=== PATIENT | female | born 1945 | race Caucasian/White ===

== ENCOUNTER 2019-05-01 08:59 | Outpatient (CLI) | payer MEDICARE, OTHER ==
--- NOTE | 2019-05-15 09:08 | MMO ---
Bilateral MAMMO Bilat Screen DDI. CLINICAL HISTORY: Patient is 74 years old and is seen for screening. The patient has no family history of breast cancer. The patient has no personal history of cancer. VIEWS: The views performed were: bilateral craniocaudal and bilateral mediolateral oblique. FILMS COMPARED: The present examination has been compared to prior imaging studies performed at [facility] on 03/19/2013, 04/10/2013 and 04/30/2014. This study has been interpreted with the assistance of computer-aided detection. MAMMOGRAM FINDINGS: There are scattered fibroglandular densities. Right breast: Focal asymmetry with architectural distortion in the inner breast, only seen on the CC projection. Left breast: There are no suspicious masses, calcifications or areas of architectural distortion. In the left breast, there are no suspicious masses, calcifications or areas of architectural distortion. IMPRESSION: FINDING IN THE RIGHT BREAST REQUIRES ADDITIONAL EVALUATION. ADDITIONAL IMAGING. ACR BI-RADS Category 0 - Incomplete: Need additional imaging evaluation. [facility] will notify the patient of the need for additional imaging services. MAMMOGRAPHY NOTE: 1. A negative mammogram report should not delay a biopsy if a dominant of clinically suspicious mass is present. 2. Approximately 10% to 15% of breast cancers are not detected by mammography. 3. Adenosis and dense breasts may obscure an underlying neoplasm.
== END 2019-05-01 09:00 | disposition home or self-care (01) ==
LOC: SCSMAMMO 08:59
PROVIDERS: ATTEND Nurse Practitioner
DX: Z12.31 Encounter for screening mammogram for malignant neoplasm of breast (principal)
CPT/HCPCS: 77067

== ENCOUNTER 2019-05-23 08:12 | Outpatient (CLI) | payer MEDICARE, OTHER ==
--- NOTE | 2019-05-23 08:54 | MMO ---
Right Breast MAMMO Unilat Diag DDI RT+ELLEN. CLINICAL HISTORY: Patient is 74 years old and is seen for follow-up at short-interval from prior study. The patient has no family history of breast cancer. The patient has no personal history of cancer. VIEWS: The views performed were: right craniocaudal spot compression with tomosynthesis and right mediolateral with tomosynthesis. FILMS COMPARED: The present examination has been compared to prior imaging studies performed at [facility] on 05/01/2019, and at [facility] on 03/19/2013, 04/10/2013 and 04/30/2014. MAMMOGRAM FINDINGS: There are scattered fibroglandular densities. There is an asymmetry seen in the central region of the right breast. Tomosynthesis images show the abnormality to represent superimpostion of normal breast parenchyma. There are no suspicious masses, suspicious calcifications, or new areas of architectural distortion. IMPRESSION: THERE IS NO MAMMOGRAPHIC EVIDENCE OF MALIGNANCY. A ROUTINE FOLLOW-UP MAMMOGRAM IN 1 YEAR IS RECOMMENDED. THE RESULTS OF THIS EXAM WERE SENT TO THE PATIENT. ACR BI-RADS Category 2 - Benign finding MAMMOGRAPHY NOTE: 1. A negative mammogram report should not delay a biopsy if a dominant of clinically suspicious mass is present. 2. Approximately 10% to 15% of breast cancers are not detected by mammography. 3. Adenosis and dense breasts may obscure an underlying neoplasm. Reported by: CHANDLER GARCIA MD Electonically Signed: [id number]
== END 2019-05-23 08:13 | disposition home or self-care (01) ==
LOC: BICMAMMO 08:12
PROVIDERS: ATTEND Nurse Practitioner
DX: R92.2 Inconclusive mammogram (principal)
CPT/HCPCS: 77065; G0279

== ENCOUNTER 2020-04-08 10:13 | Outpatient (CLI) | payer MEDICARE, OTHER ==
--- NOTE | 2020-04-08 14:05 | BD ---
Exam: DEXA Bone Density 04/08/20 HISTORY: Postmenopausal. Lumbar Spine: BMD (g/cm2) T-SCORE L1 0.782 -1.9 L2 0.832 -1.8 L3 0.740 -3.1 L4 0.793 -2.4 L1-L4 0.786 -2.4 Femoral Neck: 0.573 -2.5 Total Femur: 0.742 -1.6 Impression: Osteoporosis of the left femoral neck and osteopenia of the lumbar spine. POS: STEFANIA
== END 2020-04-08 10:14 | disposition home or self-care (01) ==
LOC: BICMAMMO 10:13
PROVIDERS: ATTEND Nurse Practitioner
DX: Z13.820 Encounter for screening for osteoporosis (principal); Z78.0 Asymptomatic menopausal state; M81.0 Age-related osteoporosis without current pathological fracture
CPT/HCPCS: 77080

== ENCOUNTER 2020-05-20 11:02 | Outpatient (CLI) | payer MEDICARE, OTHER ==
--- NOTE | 2020-05-20 11:48 | MMO ---
Bilateral MAMMO Bilat Screen DDI+ELLEN. CLINICAL HISTORY: Patient is 75 years old and is seen for screening. The patient has no family history of breast cancer. The patient has no personal history of cancer. VIEWS: The views performed were: bilateral craniocaudal with tomosynthesis and bilateral mediolateral oblique with tomosynthesis. FILMS COMPARED: The present examination has been compared to prior imaging studies performed at [facility] on 05/01/2019, at [facility] on 05/23/2019, and at [facility] on 04/10/2013 and 04/30/2014. This study has been interpreted with the assistance of computer-aided detection. MAMMOGRAM FINDINGS: There are scattered fibroglandular densities. There are no suspicious masses, suspicious calcifications, or new areas of architectural distortion. IMPRESSION: THERE IS NO MAMMOGRAPHIC EVIDENCE OF MALIGNANCY. A ROUTINE FOLLOW-UP MAMMOGRAM IN 1 YEAR IS RECOMMENDED. THE RESULTS OF THIS EXAM WERE SENT TO THE PATIENT. ACR BI-RADS Category 1 - Negative MAMMOGRAPHY NOTE: 1. A negative mammogram report should not delay a biopsy if a dominant of clinically suspicious mass is present. 2. Approximately 10% to 15% of breast cancers are not detected by mammography. 3. Adenosis and dense breasts may obscure an underlying neoplasm. Reported by: HENOK TOSCANO MD Electonically Signed: [id number]
== END 2020-05-20 11:03 | disposition home or self-care (01) ==
LOC: BICMAMMO 11:02
PROVIDERS: ATTEND Nurse Practitioner
DX: Z12.31 Encounter for screening mammogram for malignant neoplasm of breast (principal)
CPT/HCPCS: 77063; 77067